=== PATIENT | female | born 1985 | race Caucasian/White ===

== ENCOUNTER 2016-05-30 09:29 | Emergency (ER) | payer OTHER ==
[~2016-05-30] VITALS: Ht 172.7 cm; Wt 95.3 kg
[~2016-05-30 09:29] MED LIST: ATOR40TA PO; CLON0.5T PO; HYDR-2762 PO; HYDR-971 PO; METR500T PO; NAPR500T PO; NORE5TAB3 PO; ONDA4TAB7 PO; TRAM-29 PO; VENL150T PO
[2016-05-30 09:35] VITALS: BP 141/97
[2016-05-30] MEDS ORDERED: OFLO5DRO OD (10:01)
--- NOTE | 2016-05-30 10:01 | PHYS DOC ---
Past Medical History Past Medical History: No Pertinent History Past Surgical History: Tubal ligation Additional Past Surgical Histo: LEAP procedure, ablation Smoking: Less than 1pk/day Alcohol Use: None Drug Use: None Adult General Chief Complaint Chief Complaint: EYE PROBLEMS HPI HPI Patient is a 31 year old female who presents with right eyebrow redness that started last night. She states that the eye is itchy and she awoke with the eyelids matted this morning. She denies eye pain, foreign body sensation, or vision changes. She has not had any recent upper respiratory illness symptoms. She denies any injury to the eye. She wears glasses but does not wear contact lenses. Her PCP is Dr. Shirley Dennis. Review of Systems Review of Systems Constitutional: Denies fever or chills. [] Eyes: Denies change in visual acuity or eye pain. Denies photophobia. Reports right eye redness and drainage. HENT: Denies ear pain, nasal congestion or sore throat. [] Respiratory: Denies cough or shortness of breath. [] Integument: Denies rash or skin lesions. [] Neurologic: Denies headache, focal weakness or sensory changes. [] Allergies Allergies Allergies Coded Allergies Type Severity Reaction Last Updated Verified No Known Drug Allergies 01/09/16 No Physical Exam Physical Exam Constitutional: Well developed, well nourished, no acute distress, non-toxic appearance. [] HENT: Normocephalic, atraumatic, bilateral external ears normal, oropharynx moist, no oral exudates, nose normal. [] Eyes: PERRLA, EOMI, no discharge. Right eye conjunctival injection. There is no drainage. There is no edema of the eyelids. Visual acuity: OS 20/20, OD 20/20, OU 20/15 (corrected) Skin: Warm, dry, no erythema, no rash. [] Neurologic: Alert and oriented X 3, normal motor function, normal sensory function, no focal deficits noted. [] Psychologic: Affect normal, judgement normal, mood normal. [] EKG EKG [] Radiology/Procedures Radiology/Procedures [] Course & Med Decision Making Course & Med Decision Making Pertinent Labs and Imaging studies reviewed. (See chart for details) [] Dragon Disclaimer Dragon Disclaimer This electronic medical record was generated, in whole or in part, using a voice recognition dictation system. Departure Departure Impression: Primary Impression: Conjunctivitis Disposition: HOME, SELF-CARE Condition: STABLE Referrals: SHIRLEY DENNIS MD (PCP) JAY PRICE MD Patient Instructions: Bacterial Conjunctivitis, [id number] Additional Instructions: Please use the prescribed antibiotic drops as directed. Please follow-up with the supervisor carding listed below if you have any worsening of your eye. Return to the emergency department with any new or concerning symptoms. Scripts Ofloxacin (Ocuflox)5 Ml Drops1 Drop OD QID 5 Days Prov:ADRIENNE MONTENEGRO 05/30/16 Problem Qualifiers Primary Impression: Conjunctivitis Conjunctivitis type: acute Acute conjunctivitis type: bacterial Laterality : right Qualified Code: H10.31 - Unspecified acute conjunctivitis, right eye ADRIENNE MONTENEGRO May 30, 2016 10:01
== END 2016-05-30 10:12 | disposition home or self-care (01) ==
LOC: ER 09:29
DX: H10.31 Unspecified acute conjunctivitis, right eye (principal); F17.210 Nicotine dependence, cigarettes, uncomplicated
CPT/HCPCS: 99283

== ENCOUNTER 2016-06-30 08:16 | Emergency (ER) | payer OTHER ==
[~2016-06-30] VITALS: Ht 177.8 cm; Wt 95.3 kg
[~2016-06-30 08:16] MED LIST changes: +OFLO5DRO OD
[2016-06-30 08:44] VITALS: BP 139/80
[2016-06-30] MEDS ORDERED: POLY10DR3 OS (08:59)
--- NOTE | 2016-06-30 09:00 | PHYS DOC ---
Past Medical History Past Medical History: No Pertinent History Past Surgical History: Tubal ligation Additional Past Surgical Histo: LEAP procedure, ablation Smoking: Less than 1pk/day Alcohol Use: None Drug Use: None Adult General Chief Complaint Chief Complaint: EYE PROBLEMS HPI HPI Patient is a 31 year old female who presents with left eye itching and upper eyelid swelling for 4 days. She has constant clear drainage from the eye with yellow crusting in the corners. She reports blurred vision in the left eye due to the drainage. She denies any injury to the eye. She does not have any pain in the eye. She was glasses but does not or contact lenses. The patient was seen here approximately one month ago for similar symptoms in the right eye. She reports interval improvement with treatment. Her PCP is Dr. Shirley Dennis. Review of Systems Review of Systems Constitutional: Denies fever or chills. [] Eyes: Denies eye pain. Reports left eye itching, left upper eyelid swelling, left eye drainage, and left eye blurred vision. HENT: Denies ear pain, nasal congestion or sore throat. [] Integument: Denies rash or skin lesions. [] Neurologic: Denies headache, focal weakness or sensory changes. [] Allergies Allergies Allergies Coded Allergies Type Severity Reaction Last Updated Verified No Known Drug Allergies 01/09/16 No Physical Exam Physical Exam Constitutional: Well developed, well nourished, no acute distress, non-toxic appearance. [] HENT: Normocephalic, atraumatic, bilateral external ears normal, oropharynx moist, no oral exudates, nose normal. [] Eyes: PERRLA, EOMI. mild conjunctival injection of the left eye. There is clear drainage from the left eye. There is minimal left upper eyelid edema. Visual acuity: OS 20/40, OD 20/30, OU 20/20 (corrected). Neck: Normal range of motion, no tenderness, supple, no stridor. [] Skin: Warm, dry, no erythema, no rash. [] Neurologic: Alert and oriented X 3, normal motor function, normal sensory function, no focal deficits noted. [] Psychologic: Affect normal, judgement normal, mood normal. [] Current Patient Data Vital Signs Vital Signs Date Time Temp Pulse Resp B/P Pulse Ox O2 Delivery O2 Flow Rate FiO2 06/30/16 08:44 98.0 100 20 96 Room Air 98.0 EKG EKG [] Radiology/Procedures Radiology/Procedures [] Course & Med Decision Making Course & Med Decision Making Pertinent Labs and Imaging studies reviewed. (See chart for details) [] Dragon Disclaimer Dragon Disclaimer This electronic medical record was generated, in whole or in part, using a voice recognition dictation system. Departure Departure Impression: Primary Impression: Conjunctivitis Disposition: HOME, SELF-CARE Condition: STABLE Referrals: SHIRLEY DENNIS MD (PCP) Reggie DUNBAR MD Patient Instructions: Bacterial Conjunctivitis, [id number] Additional Instructions: You were seen for an infection in the left eye. Please use the prescribed antibiotic eyedrops as directed. Please wash your hands frequently to avoid spreading the infection to the other eye or to other people. Please do not use any eye makeup until you are done with the eyedrops. Please thoroughly any old eye makeup and use all new makeup after completion of the eyedrops. Please follow-up with the plywood layup line core layer listed below if you have any worsening of your eye. Return to the emergency department if you've any new or concerning symptoms. Scripts Polymyxin B Sulf/Trimethoprim (Polymyxin B-Tmp Eye Drops)10 Ml Drops1 Drop OS QID 7 Days Prov:ADRIENNE MONTENEGRO 06/30/16 Problem Qualifiers Primary Impression: Conjunctivitis Conjunctivitis type: acute Acute conjunctivitis type: unspecified Laterality: left Qualified Code: H10.32 - Unspecified acute conjunctivitis, left eye ADRIENNE MONTENEGRO Jun 30, 2016 09:00
== END 2016-06-30 09:34 | disposition home or self-care (01) ==
LOC: ER 08:16
DX: H10.32 Unspecified acute conjunctivitis, left eye (principal); F17.200 Nicotine dependence, unspecified, uncomplicated
CPT/HCPCS: 99283

== ENCOUNTER 2016-07-16 08:13 | Emergency (ER) | payer OTHER ==
[~2016-07-16] VITALS: Ht 177.8 cm; Wt 77.1 kg
[~2016-07-16 08:13] MED LIST changes: +POLY10DR3 OS
[2016-07-16] MEDS ORDERED: PROMETHAZINE 12.5 MG in IV NORMAL SALINE 50ML 50 ML IV PRN (09:00)
[2016-07-16] MEDS ORDERED: KETOROLAC TROMETHAMINE 30 MG/ML INJ. IV ONE (09:00)
[2016-07-16] MEDS ORDERED: DIPHENHYDRAMINE 50 MG/ML VIAL. IVP ONE (09:00)
[2016-07-16] MEDS ORDERED: methylPREDNISolone SOD SUCC PF 125 MG/2 ML VIAL. IV ONE (09:00)
--- NOTE | 2016-07-16 09:37 | PHYS DOC ---
Past Medical History Past Medical History: No Pertinent History Past Surgical History: Tubal ligation Additional Past Surgical Histo: LEAP procedure, ablation Smoking: Less than 1pk/day Alcohol Use: None Drug Use: None Adult General Chief Complaint Chief Complaint: HEADACHE HPI HPI Patient is a 31 year old female who presents with frontal headache for 2 weeks. She states that it got worse over the last 2 days. She has associated photophobia with nausea and vomiting that began today. She denies fever, vision changes, focal weakness or numbness, or dizziness. She does not have nasal congestion, sore throat, ear pain, or cough. She denies pain in the abdomen or her neck. She denies history of headaches in the past. She's been taking Tylenol , ibuprofen, and Excedrin Migraine without relief of her pain. Her PCP is Dr. Shirley Dennis. Review of Systems Review of Systems Constitutional: Denies fever or chills. [] Eyes: Denies change in visual acuity, redness, or eye pain. Reports photophobia. HENT: Denies ear pain, nasal congestion or sore throat. [] Respiratory: Denies cough or shortness of breath. [] Cardiovascular: Denies chest pain, palpitations or edema. [] GI: Denies abdominal pain, bloody stools or diarrhea. Reports nausea and vomiting. : Denies dysuria, hematuria or urinary frequency. [] Musculoskeletal: Denies back pain or joint pain. Denies neck pain or stiffness. Integument: Denies rash or skin lesions. [] Neurologic: Denies dizziness, focal weakness or sensory changes. Reports frontal headache. Endocrine: Denies polyuria or polydipsia. [] Psych: Denies anxiety or depression. [] All systems reviewed and negative unless otherwise stated in the HPI. Current Medications Current Medications Current Medications Medications (Trade) Dose Ordered Sig/Dyllan Start Time Stop Time Status Last Admin Dose Admin Diphenhydramine HCl 25 mg 25 mg 1X ONCE 07/16/16 09:00 07/16/16 09:08 DC 07/16/16 09:47 25 MG Ketorolac Tromethamine (Toradol) 30 mg 1X ONCE 07/16/16 09:00 07/16/16 09:08 DC 07/16/16 09:52 30 MG Methylprednisolone Sodium Succinate (Solu-Medrol 125mg Vial) 125 mg 1X ONCE 07/16/16 09:00 07/16/16 09:08 DC 07/16/16 09:48 125 MG Promethazine HCl/ Sodium Chloride (Phenergan/Iv Sodium Chloride 0.9% 50ml) 50.5 ml @ 151.5 mls/ hr PRN Q6HRS PRN 07/16/16 09:00 07/16/16 09:53 151.5 MLS/HR Allergies Allergies Allergies Coded Allergies Type Severity Reaction Last Updated Verified No Known Drug Allergies 07/16/16 No Physical Exam Physical Exam Constitutional: Well developed, well nourished, no acute distress, non-toxic appearance. [] HENT: Normocephalic, atraumatic, bilateral external ears normal, oropharynx moist, no oral exudates, nose normal. Bilateral TMs without erythema or bulging. There is no posterior pharyngeal erythema or tonsillar edema. There is no tenderness over the frontal or maxillary sinuses to palpation. Eyes: PERRLA, EOMI, conjunctiva normal, no discharge. [] Neck: Normal range of motion, no tenderness, supple, no stridor. There is no nuchal rigidity or meningeal signs. Cardiovascular:Heart rate regular rhythm, no murmur [] Lungs & Thorax: Bilateral breath sounds clear to auscultation [] Abdomen: Bowel sounds normal, soft, no tenderness, no masses, no pulsatile masses. [] Skin: Warm, dry, no erythema, no rash. [] Back: No tenderness, no CVA tenderness. [] Extremities: No tenderness, ROM intact, no edema. 2+ pedal pulses bilaterally. Neurologic: Alert and oriented X 3, normal motor function, normal sensory function, no focal deficits noted. CN II-XII grossly intact. Psychologic: Affect normal, judgement normal, mood normal. [] Current Patient Data Vital Signs Vital Signs Date Time Temp Pulse Resp B/P Pulse Ox O2 Delivery O2 Flow Rate FiO2 07/16/16 08:40 97.9 104 20 169/80 98 Room Air 97.9 Lab Values Laboratory Tests Test 07/16/16 08:41 POC Urine HCG, Qualitative Hcg negative (Negative) EKG EKG [] Radiology/Procedures Radiology/Procedures [] Course & Med Decision Making Course & Med Decision Making Pertinent Labs and Imaging studies reviewed. (See chart for details) Patient is a 31-year-old female who presents with frontal headache for 2 weeks with recent development of photophobia and nausea with vomiting. On exam, she does not have any nuchal rigidity and there are no neurologic deficits. She is given IV Toradol, Benadryl, Phenergan, and Solu-Medrol in the emergency department with improvement in her pain. She is discharged with prescription for Fioricet and Zofran. Return precautions were discussed. She verbalizes understanding and agrees with plan. Dragon Disclaimer Dragon Disclaimer This electronic medical record was generated, in whole or in part, using a voice recognition dictation system. Departure Departure Impression: Primary Impression: Headache Disposition: HOME, SELF-CARE Condition: IMPROVED Referrals: SHIRLEY DENNIS MD (PCP) Patient Instructions: General Headache Without Cause, [id number] Additional Instructions: Please take the prescribed medications as directed. Please follow-up with your primary care doctor if your headache continues. Return to the emergency department if you have any new or concerning symptoms. Scripts Butalb/Acetaminophen/Caffeine (Fioricet 50-300-40 Mg Capsule)1 Each Capsule1 Each PO PRN Q4HRS PRN MIGRAINE HEADACHE #12 CAP Prov:ADRIENNE MONTENEGRO 07/16/16 Ondansetron (Zofran Odt)4 Mg Tab.rapdis1 Tab SL Q8HRS #10 TAB Prov:ADRIENNE MONTENEGRO 07/16/16 Problem Qualifiers Primary Impression: Headache Headache type: unspecified Headache chronicity pattern: unspecified pattern Intractability: not intractable Qualified Code: R51 - Headache ADRIENNE MONTENEGRO Jul 16, 2016 09:37
[2016-07-16] MEDS ORDERED: ONDA4TAB10 SL (11:03)
[2016-07-16] MEDS ORDERED: BUTA1CAP29 PO (11:03)
[2016-07-16 11:10] VITALS: BP 108/73
== END 2016-07-16 11:20 | disposition home or self-care (01) ==
LOC: ER 08:13
DX: R51 Headache (principal); R11.2 Nausea with vomiting, unspecified; H53.149 Visual discomfort, unspecified; F17.200 Nicotine dependence, unspecified, uncomplicated
CPT/HCPCS: 81025; 96365; 96375; 99284; J1200; J1885; J2550; J2930

== ENCOUNTER 2016-07-20 17:19 | Emergency (ER) | payer OTHER ==
[~2016-07-20] VITALS: Ht 177.8 cm; Wt 77.1 kg
[~2016-07-20 17:19] MED LIST changes: +BUTA1CAP29 PO; +ONDA4TAB10 SL
[2016-07-20] MEDS ORDERED: METOCLOPRAMIDE HCL 10 MG/2 ML VIAL. IV ONE (19:45)
[2016-07-20] MEDS ORDERED: IV NORMAL SALINE 1000ML BAG 1,000 ML IV ONE (19:45)
[2016-07-20] MEDS ORDERED: DEXAMETHASONE SOD PHOS 4 MG/ML VIAL IV ONE (19:45)
[2016-07-20] MEDS ORDERED: KETOROLAC TROMETHAMINE 30 MG/ML INJ. IV ONE (19:45)
[2016-07-20] MEDS ORDERED: DIPHENHYDRAMINE 50 MG/ML VIAL. IVP ONE (19:45)
[2016-07-20 20:18] VITALS: BP 119/73
--- NOTE | 2016-07-20 21:12 | RAD ---
PROCEDURE Head CT without contrast. HISTORY Headache. TECHNIQUE Computed tomographic images of the head were obtained without contrast. One or more of the following individualized dose reduction techniques were utilized for this examination: 1. Automated exposure control; 2. Adjustment of the mA and/or kV according to patient size; 3. Use of iterative reconstruction technique. COMPARISON None. FINDINGS There is no acute or subacute hemorrhage. There is no mass effect or midline shift. There is no hydrocephalus. The galdamez and white matter differentiation pattern is intact. The orbits, paranasal sinuses mastoid air cells are unremarkable. No calvarial lesion is seen. IMPRESSION No acute intracranial finding. Electronically signed by: Rafaela Benton (Jul 20, 2016 21:10:50)
--- NOTE | 2016-07-20 21:50 | PHYS DOC ---
Past Medical History Past Medical History: No Pertinent History Past Surgical History: Tubal ligation Additional Past Surgical Histo: LEAP procedure, ablation, ganglion cyst removal Additional Information: 5 cigarettes daily Alcohol Use: None Drug Use: None Adult General Chief Complaint Chief Complaint: HEADACHE HPI HPI This is a 31-year-old female who's had return of her migraine headache. Patient was seen in the ER several days ago and had a migraine cocktail that resolved her symptoms but that she states her headache came back within the next day. She has significant nausea but she states she is sensitive to light and sound and that this exacerbates her pain. She does states she has history of migraines but is not currently taking any medications for them. She denies any fever or chills. She localizes all her pain primarily to her forehead. Review of Systems Review of Systems Constitutional: Denies fever or chills [] Eyes: Denies change in visual acuity, redness, or eye pain [] HENT: Denies nasal congestion or sore throat [] Respiratory: Denies cough or shortness of breath [] Cardiovascular: No additional information not addressed in HPI [] GI: Denies abdominal pain, nausea, vomiting, bloody stools or diarrhea [] : Denies dysuria or hematuria [] Musculoskeletal: Denies back pain or joint pain [] Integument: Denies rash or skin lesions [] Neurologic: Has headache, denies focal weakness or sensory changes [] Endocrine: Denies polyuria or polydipsia [] Current Medications Current Medications Current Medications Medications (Trade) Dose Ordered Sig/[facility] Start Time Stop Time Status Last Admin Dose Admin Dexamethasone Sodium Phosphate (Decadron) 10 mg 1X ONCE 07/20/16 19:45 07/20/16 19:47 DC 07/20/16 19:57 10 MG Diphenhydramine HCl (Benadryl) 25 mg 1X ONCE 07/20/16 19:45 07/20/16 19:47 DC 07/20/16 19:57 25 MG Ketorolac Tromethamine (Toradol) 30 mg 1X ONCE 07/20/16 19:45 07/20/16 19:47 DC 07/20/16 19:57 30 MG Metoclopramide HCl (Reglan) 10 mg 1X ONCE 07/20/16 19:45 07/20/16 19:47 DC 07/20/16 19:56 10 MG Sodium Chloride (Iv Sodium Chloride 0.9% 1000ml Bag) 1,000 ml @ 1,000 mls/hr 1X ONCE 07/20/16 19:45 07/20/16 20:44 DC 07/20/16 19:45 1,000 MLS/HR Allergies Allergies Allergies Coded Allergies Type Severity Reaction Last Updated Verified No Known Drug Allergies 07/16/16 No Physical Exam Physical Exam Constitutional: Well developed, well nourished, no acute distress, non-toxic appearance. [] HENT: Normocephalic, atraumatic, bilateral external ears normal, oropharynx moist, no oral exudates, nose normal. [] Eyes: PERRLA, EOMI, conjunctiva normal, no discharge. [] Neck: Normal range of motion, no tenderness, supple, no stridor. [] Cardiovascular:Heart rate regular rhythm, no murmur [] Lungs & Thorax: Bilateral breath sounds clear to auscultation [] Abdomen: Bowel sounds normal, soft, no tenderness, no masses, no pulsatile masses. [] Skin: Warm, dry, no erythema, no rash. [] Back: No tenderness, no CVA tenderness. [] Extremities: No tenderness, no cyanosis, no clubbing, ROM intact, no edema. [] Neurologic: Alert and oriented X 3, normal motor function, normal sensory function, no focal deficits noted. [] Psychologic: Affect normal, judgement normal, mood normal. [] Current Patient Data Vital Signs Vital Signs Date Time Temp Pulse Resp B/P Pulse Ox O2 Delivery O2 Flow Rate FiO2 07/20/16 20:18 80 18 119/73 98 Room Air 07/20/16 17:48 97.9 97.9 Lab Values Laboratory Tests Test 07/20/16 17:43 POC Urine HCG, Qualitative Hcg negative (Negative) Radiology/Procedures Radiology/Procedures PATIENT: DAYO MARCIAL ACCOUNT: [id number] : 1985 LOCATION: ER AGE: 31 SEX: F EXAM STATUS: REG ER ORD. PHYSICIAN: POLA GONSALEZ DO REASON: headache PROCEDURE: CT HEAD WO CONTRAST PROCEDURE Head CT without contrast. HISTORY Headache. TECHNIQUE Computed tomographic images of the head were obtained without contrast. One or more of the following individualized dose reduction techniques were utilized for this examination: 1. Automated exposure control; 2. Adjustment of the mA and/or kV according to patient size; 3. Use of iterative reconstruction technique. COMPARISON None. FINDINGS There is no acute or subacute hemorrhage. There is no mass effect or midline shift. There is no hydrocephalus. The galdamez and white matter differentiation pattern is intact. The orbits, paranasal sinuses mastoid air cells are unremarkable. No calvarial lesion is seen. IMPRESSION No acute intracranial finding. Electronically signed by: Rafaela Perez (Jul 20, 2016 21:10:50) DICTATED and SIGNED BY: RAFAELA PEREZ MD DATE: 07/20/162109 CC: POLA GONSALEZ DO; SHIRLEY DENNIS MD ~ Course & Med Decision Making Course & Med Decision Making Pertinent Labs and Imaging studies reviewed. (See chart for details) This 31-year-old female had complete resolution of her migraine symptoms with typical migraine cocktail. A CT of her head did not demonstrate any acute abnormality. She has a follow-up appointment with her doctor, Dr. Shirley Dennis, in the morning and I told her to receive this follow-up as scheduled. I do not see an indication to perform any laboratory workup at this time. She was discharged to home feeling much improved with instruction to continue to remain well hydrated at home. Dragon Disclaimer Dragon Disclaimer This electronic medical record was generated, in whole or in part, using a voice recognition dictation system. Departure Departure Impression: Primary Impression: Migraine Disposition: 01 HOME, SELF-CARE Admitting Physician: Other Condition: IMPROVED Referrals: SHIRLEY DENNIS MD (PCP) Patient Instructions: Migraine Headache, [id number] Additional Instructions: Please follow up with your primary doctor, Dr. Dennis, in the next day as discussed and return to the ER if you develop any worsening of your symptoms. Remain in a quiet, dark room for the next 24 hours for your headache. POLA GONSALEZ DO Jul 20, 2016 21:49
== END 2016-07-20 22:09 | disposition home or self-care (01) ==
LOC: ER 17:19
DX: G43.909 Migraine, unspecified, not intractable, without status migrainosus (principal); F17.210 Nicotine dependence, cigarettes, uncomplicated; Z98.51 Tubal ligation status
CPT/HCPCS: 70450; 81025; 96361; 96374; 96375; 99285; J1100; J1200; J1885; J2765; J7030

== ENCOUNTER 2016-07-25 09:59 | Emergency (ER) | payer OTHER ==
[2016-07-25 10:03] VITALS: BP 143/88
--- NOTE | 2016-07-25 10:31 | PHYS DOC ---
Past Medical History Past Medical History: No Pertinent History Past Surgical History: Tubal ligation Additional Past Surgical Histo: LEAP procedure, ablation, ganglion cyst removal Alcohol Use: None Drug Use: None Adult General Chief Complaint Chief Complaint: HEADACHE HPI HPI 31-year-old female with a history of migraines presents to the emergency department today with a headache similar to her previous migraines associated with nausea and vomiting which is common for her migraines. She is been seen in our emergency department a few times recently for this and is followed up with her doctor Dr. Dennis 4 days ago who was able to prescribe the patient some Zofran and sumatriptan. The patient reports her headache is been present for the past 5-6 hours. She takes acetaminophen and ibuprofen alternating for her headaches however hasn't taken as much ibuprofen over the last 24 hours because she was feeling better yesterday. She denies neck stiffness fevers chills vision changes numbness weakness or tingling. She reports significant snoring at night waking up in the morning fatigued and having mild edema in her legs. Review of systems is negative for chest pain shortness of breath fevers chills. All other review of systems is negative unless otherwise noted in history of present illness. Review of Systems Review of Systems SEE ABOVE. Allergies Allergies Allergies Coded Allergies Type Severity Reaction Last Updated Verified No Known Drug Allergies 07/16/16 No Physical Exam Physical Exam Constitutional: Well developed, well nourished, no acute distress, non-toxic appearance. [] HENT: Normocephalic, atraumatic, bilateral external ears normal, oropharynx moist, no oral exudates, nose normal. [] Negative Brudzinski's sign. Negative Kernig sign. Eyes: PERRLA, EOMI, conjunctiva normal, no discharge. [] Neck: Normal range of motion, no tenderness, supple, no stridor. [] Cardiovascular:Heart rate regular rhythm, no murmur [] Lungs & Thorax: Bilateral breath sounds clear to auscultation [] Abdomen: Bowel sounds normal, soft, no tenderness, no masses, no pulsatile masses. [] Skin: Warm, dry, no erythema, no rash. [] Back: No tenderness, no CVA tenderness. [] Extremities: No tenderness, no cyanosis, no clubbing, ROM intact, no edema. [] Neurologic: Mental status: Awake oriented and alert x3 Cranial nerves: Extraocular movements intact, eyebrows adan bilaterally smile symmetric, uvula elevation, shoulder shrug intact, tongue protrusion normal DTRs:2+ Sensation: equal and normal in all extremities Strength: 5/5 in upper and lower extremities bilaterally Psychologic: Affect normal, judgement normal, mood normal. [] Current Patient Data Vital Signs Vital Signs Date Time Temp Pulse Resp B/P Pulse Ox O2 Delivery O2 Flow Rate FiO2 07/25/16 10:03 97.9 98 20 143/88 99 Room Air 97.9 Lab Values Laboratory Tests Test 07/25/16 09:42 POC Urine HCG, Qualitative Hcg negative (Negative) EKG EKG [] Radiology/Procedures Radiology/Procedures [] Course & Med Decision Making Course & Med Decision Making Pertinent Labs and Imaging studies reviewed. (See chart for details) [] 31-year-old female presenting to the emergency department with headache similar to her previous migraines. Vital signs unremarkable. Mild hypertension present. Normal neurologic exam. I had a long discussion with the patient about her migraine headaches. I offered her IV fluids Reglan and Benadryl. She has not taken her sumatriptan that was prescribed by her primary care doctor. She declined the headache medications here and stated she desired to take her sumatriptan at home. I do recommend the patient did not patient sleep study as it is likely that she has obstructive sleep apnea that may be contributing to her headaches. She does not have meningeal signs here in the emergency department. Her headache was not sudden in onset and is similar to previous migraines. She was subsequently discharged home in stable condition. Work note provided. Dragon Disclaimer Dragon Disclaimer This electronic medical record was generated, in whole or in part, using a voice recognition dictation system. Departure Departure Impression: Primary Impression: Migraine Disposition: HOME, SELF-CARE Condition: STABLE Referrals: SHIRLEY DENNIS MD (PCP) Patient Instructions: Migraine Headache Additional Instructions: Thank you for allowing us to participate in your care today. Followup with your primary care physician in 3 days if your symptoms do not improve. If you do not have a primary care provider you can ask for a list of our primary care providers. Return to the emergency department you have any new or concerning findings. This should be evaluated by the primary care physician and any necessary consulting services for continued management within a few days after discharge. Return to emergency room if you have any new or concerning symptoms including but not limited to fever, chills, nausea, vomiting, intractable pain, any new rashes, chest pain, shortness of air, uncontrolled bleeding, difficulty breathing, and/or vision loss. You may have been prescribed medication that can change in your level of thinking and ability to operate machinery. These medications include hydrocodone and Ativan. Also, Benadryl has been known to do this as well. Be sure to check with your pharmacist and ask if the medications you've prescribed can affect your level of consciousness. I recommend not operating heavy machinery or driving while on medication such as these. CAMMIE DWYER MD Jul 25, 2016 10:31
== END 2016-07-25 10:53 | disposition home or self-care (01) ==
LOC: ER 09:59
DX: G43.909 Migraine, unspecified, not intractable, without status migrainosus (principal); I10 Essential (primary) hypertension
CPT/HCPCS: 81025; 99282